=== PATIENT | female | born 1935 | race Caucasian/White ===

== ENCOUNTER 2018-11-10 17:17 | Inpatient (IN) | payer MEDICARE ==
[~2018-11-10] VITALS: Ht 160 cm; Wt 62.4 kg
[2018-11-10 18:35] LABS: BASOPHILS % 0.3 % (0.0-1.0); EOSINOPHILS % 0.3 % (0.0-6.0); HEMATOCRIT 34.2 % (34.2-44.1); HEMOGLOBIN 11.4 g/dL (12.0-16.0); LYMPHOCYTES # (AUTO) 1.8 (1.0-3.2); LYMPHOCYTES % 16.2 % (18.0-39.1); MEAN CORPUSCULAR HGB CONC 33.3 g/dL (31-35); MONOCYTES # (AUTO) 0.9 (0.2-0.8); MONOCYTES % 7.8 % (4.4-11.3); NEUTROPHILS # (AUTO) 8.5 (2.1-6.9); NEUTROPHILS % 75.1 % (38.7-80.0); PLATELET COUNT 217 x10e3/uL (140-360); RED CELL DISTRIBUTION WIDTH 12.8 % (11.7-14.4)
[2018-11-10 18:54] LABS: ALBUMIN/GLOBULIN RATIO 0.8 (0.8-2.0); ANION GAP 15.3 mmol/L (8-16); CALCIUM 9.4 mg/dL (8.4-10.2); CREATININE, SERUM 1.4 mg/dL (0.57-1.11); POTASSIUM 3.3 mmol/L (3.5-5.1)
--- NOTE | 2018-11-10 19:05 | Diagnostic Imaging Report ---
EXAMINATION: CHEST SINGLE (PORTABLE) INDICATION: ^SOB COMPARISON: None FINDINGS: AP view TUBES and LINES: None. LUNGS: Lungs are well inflated. Lungs are clear. There is no evidence of pneumonia or pulmonary edema. PLEURA: No pleural effusion or pneumothorax. HEART AND MEDIASTINUM: The cardiomediastinal silhouette is unremarkable. There are atherosclerotic calcifications within the aorta. BONES AND SOFT TISSUES: No acute osseous lesion. Soft tissues are unremarkable. Bilateral breast implants. Right breast and right axillary surgical clips. UPPER ABDOMEN: No free air under the diaphragm. IMPRESSION: No acute thoracic abnormality. Signed by: Dr. Gerardo Geronimo M.D. on 11/10/2018 7:01 PM
[2018-11-10 19:14] LABS: CREATINE KINASE MB 1.4 ng/mL (0-5.0); THYROID STIMULATING HORMONE 1.023 uIU/mL (0.350-4.940)
[2018-11-10 19:31] LABS: BILIRUBIN,URINE SMALL (NEGATIVE); CLARITY,URINE CLEAR (CLEAR); COLOR,URINE ORANGE (YELLOW); KETONES,URINE TRACE (NEGATIVE); LEUKOCYTE ESTERASE ,URINE TRACE (NEGATIVE); NITRITE,URINE POSITIVE (NEGATIVE); PROTEIN,URINE DIPSTICK 2+ (NEGATIVE); URINE UROBILINOGEN 4 mg/dL (0.2 - 1)
[2018-11-10 19:44] LABS: BACTERIA,URINE MANY /HPF; WBC,URINE (MAN) 0-5 /HPF (0-5)
[2018-11-10] MEDS ORDERED: HALOPERIDO100 MG/11 IM (20:13)
[2018-11-10] MEDS ORDERED: ATENOLOL100 MG PO (20:13)
[2018-11-10] MEDS ORDERED: PAROXETINE HCL40 MG PO (20:13)
[2018-11-10] MEDS ORDERED: TRIAMTERENE-HCTZ1 EA PO (20:13)
[2018-11-10] MEDS ORDERED: PANTOPRAZOLE SO40 MG PO (20:13)
[2018-11-10] MEDS ORDERED: DONEPEZIL HCL10 MG PO (20:13)
[2018-11-10] MEDS ORDERED: OXYBUTYNIN CHLOR5 MG PO (20:13)
[2018-11-10] MEDS ORDERED: NIFEDIPINE ER90 MG PO (20:13)
[2018-11-10] MEDS ORDERED: VITAMIN D250000 UNIT PO (20:13)
[2018-11-10] MEDS ORDERED: LISINOPRIL40 MG PO (20:13)
[2018-11-10] MEDS ORDERED: NAPROXEN500 MG PO (20:13)
[2018-11-10] MEDS ORDERED: MIRTAZAPINE30 MG PO (20:13)
[2018-11-10] MEDS ORDERED: ATORVASTATIN CA40 MG PO (20:13)
[2018-11-10] MEDS ORDERED: QUETIAPINE FUMA50 MG PO (20:13)
--- NOTE | 2018-11-10 20:50 | Diagnostic Imaging Report ---
Examination: CT head without contrast Clinical Indication: Altered mental status. Technique: Transaxial noncontrast images from the skull base through the vertex were obtained. Sagittal and coronal reformatted images were done. Dose modulation, iterative reconstruction, and/or weight based adjustment of the mA/kV was utilized to reduce the radiation dose to as low as reasonably achievable. Comparison: None. Findings: Scalp: No abnormalities. Bones: Intact. No fractures. No blastic or lytic lesions. Brain sulci: Appropriate for patient's age. Ventricles: Normal in size and configuration. No hydrocephalus. . Extra-axial space: No abnormalities. Parenchyma: There are patchy areas of low-attenuation within subcortical and periventricular white matter, nonspecific, but could represent microvascular ischemic disease. A chronic left striatocapsular lacunar infarct. No masses, hemorrhage, or acute or chronic cortical based vascular insults. Suprasellar region: No abnormalities. Craniocervical junction: The foramen magnum is patent. No Chiari one malformation. Incidental findings: Atherosclerotic calcification of the cavernous and supraclinoid internal carotid and V4 segments of the bilateral vertebral arteries. Impression: 1. No acute intracranial finding. 2. Moderate chronic microvascular ischemic change. Chronic left striatocapsular lacunar infarct. Signed by: Dr. Ayla Noe M.D. on 11/10/2018 8:46 PM
[2018-11-10] MEDS ORDERED: HALOPERIDOL DECANOATE 100 MG IM SCH (21:00)
[2018-11-10] MEDS ORDERED: KCL 20MEQ/.9 SOD CHL 1,000 ML IV ONE ×2 (21:00→21:13)
[2018-11-10] MEDS ORDERED: ONDANSETRON HCL INJ 2MG/ML 2ML 2 MG/ML VIAL IV PRN (21:00)
--- OUTSIDE RECORDS SUMMARY | 2018-11-10 21:07 | XMS REPORT ---
Author Author [facility] Address Unknown Phone Unavailable Care Team Providers Care Implant Polisher Name Role Phone Kelly LAWSON Unavailable Unavailable Problems This patient has no known problems. Allergies, Adverse Reactions, Alerts This patient has no known allergies or adverse reactions. Medications This patient has no known medications. Results Test Description Test Time Test Comments Text Results Atomic Results Result Comments CT BRAIN WO 2018-11-10 20:43:00 [place] [address] Patient Name: TRACY MICHELLE MR #: [id number] : 1935 Age/Sex: 83/F Req #: [id number] Adm Physician: Ordered by: DENISE WILSON MD Report #: [id number] Location: ER Room/Bed: Procedure: [id number] CT/CT BRAIN WO Exam Date: Exam Time: REPORT STATUS: Signed Examination: CT head without contrast Clinical Indication: Altered mental status. Technique: Transaxial noncontrast images from the skull base through the vertex were obtained. Sagittal and coronal reformatted images were done. Dose modulation, iterative reconstruction, and/or weight based adjustment of the mA/kV was utilized to reduce the radiation dose to as low as reasonably achievable. Comparison: None. Findings: Scalp: No abnormalities. Bones: Intact. No fractures. No blastic or lytic lesions. Brain sulci: Appropriate for patient's age. Ventricles: Normal in size and configuration. No hydrocephalus. . Extra-axial space: No abnormalities. Parenchyma: There are patchy areas of low-attenuation within subcortical and periventricular white matter, nonspecific, but could represent microvascular ischemic disease. A chronic left striatocapsular lacunar infarct. No masses, hemorrhage, or acute or chronic cortical based vascular insults. Suprasellar region: No abnormalities. Craniocervical junction: The foramen magnum is patent. No Chiari one malformation. Incidental findings: Atherosclerotic calcification of the cavernous and supraclinoid internal carotid and V4 segments of the bilateral vertebral arteries. Impression: 1. No acute intracranial finding. 2. Moderate chronic microvascular ischemic change. Chronic left striatocapsular lacunar infarct. Signed by: Dr. Ayla Noe M.D. on 11/10/2018 8:46 PM Dictated By: AYLA WATTS MD 45 Transcribed By: ELTON on 11/10/182045 COPY TO: DENISE WILSON MD CHEST SINGLE (PORTABLE) 2018-11-10 19:01:00 [place] [address] Patient Name: TRACY MICHELLE MR #: [id number] : 1935 Age/Sex: 83/F Req #: [id number] Adm Physician: Ordered by: MORGAN LAWSON MD Report #: [id number] Location: ER Room/Bed: Procedure: [id number] DX/CHEST SINGLE (PORTABLE) Exam Date: 11/10/18 Exam Time: 1842 REPORT STATUS: Signed EXAMINATION: CHEST SINGLE (PORTABLE) IN DICATION: SOB COMPARISON: None FINDINGS: AP view TUBES and LINES: None. LUNGS: Lungs are well inflated. Lungs are clear. There is no evidence of pneumonia or pulmonary edema. PLEURA: No pleural effusion or pneumothorax. HEART AND MEDIASTINUM: The cardiomediastinal silhouette is unremarkable. There are atherosclerotic calcifications within the aorta. BONES AND SOFT TISSUES: No acute osseous lesion. Soft tissues are unremarkable. Bilateral breast implants. Right breast and right axillary surgical clips. UPPER ABDOMEN: No free air under the diaphragm. IMPRESSION: No acute thoracic abnormality. Signed by: Dr. Farzaneh Roper M.D. on 11/10/2018 7:01 PM Dictated By: FARZANEH ROPER MD 00 Transcribed By: ELTON on 11/10/181900 COPY TO: MORGAN LAWSON MD
[2018-11-10] MEDS ORDERED: ATORVASTATIN 40 MG TAB ONE (21:11)
[2018-11-10] MEDS ORDERED: DONEPEZIL HCL 5 MG TAB ONE (21:12)
[2018-11-10] MEDS ORDERED: MIRTAZAPINE 15 MG TAB ONE (21:12)
[2018-11-10] MEDS ORDERED: QUETIAPINE FUMARATE 25 MG TAB ONE (21:13)
[2018-11-10] MEDS: MIRTAZAPINE 15 MG TAB PO SCH (21:14)
[2018-11-10] MEDS: QUETIAPINE FUMARATE 25 MG TAB PO SCH (21:14)
[2018-11-10] MEDS: DONEPEZIL HCL 5 MG TAB PO SCH (21:14)
--- NOTE | 2018-11-10 22:07 | NUR ---
PATIENT RECEIVED FROM EMERGENCY DEPARTMENT PER STRETCHER AT 0. SHE'S ALERT AND ORIENTED TO SELF ONLY. CONFUSION NOTED WHILE SPEAKING WITH THE PATIENT. REDNESS WITH DISCOLORATION TO THE SACRUM, MULTIPLE SKIN MOLES TO THE BACK. PATIENT DENIES PAIN, BED ALARM ON AND CALL LIGHT WITHIN EASY REACH.
[2018-11-10 22:15] VITALS: BP 189/75
[2018-11-10 23:22] VITALS: BP 148/66
[2018-11-11] VITALS (7 sets, daily range): BP systolic 118–175; BP diastolic 57–76
--- NOTE | 2018-11-11 02:15 | NUR ---
PATIENT WAS ASSISTED TO THE RESTROOM BY THE TECH, NO RESPIRATORY DISTRESS OBSERVED. SHE'S NOW BACK IN BED WITH BED ALARM ON AND CALL LIGHT WITHIN EASY REACH.
[2018-11-11 05:45] LABS: BASOPHILS % 0.2 % (0.0-1.0); EOSINOPHILS # (AUTO) 0.1 (0.0-0.4); LYMPHOCYTES % 21.4 % (18.0-39.1); MEAN CORPUSCULAR HEMOGLOBIN 29.4 pg (28-32); MEAN CORPUSCULAR HGB CONC 32.3 g/dL (31-35); MEAN CORPUSCULAR VOLUME 91.2 fL (81-99); MONOCYTES # (AUTO) 0.9 (0.2-0.8); MONOCYTES % 10.1 % (4.4-11.3); NEUTROPHILS # (AUTO) 6.1 (2.1-6.9); NEUTROPHILS % 66.8 % (38.7-80.0); PLATELET COUNT 185 x10e3/uL (140-360); RED CELL DISTRIBUTION WIDTH 12.7 % (11.7-14.4)
[2018-11-11 06:05] LABS: ALBUMIN 2.5 g/dL (3.5-5.0); ALBUMIN/GLOBULIN RATIO 0.8 (0.8-2.0); ANION GAP 11.1 mmol/L (8-16); CALCIUM 8.8 mg/dL (8.4-10.2); CREATININE, SERUM 1.06 mg/dL (0.57-1.11); POTASSIUM 3.1 mmol/L (3.5-5.1)
--- NOTE | 2018-11-11 07:00 | NUR ---
BEDSIDE SHIFT REPORT RECEIVED FROM ROLAN RN. PT DENIES NEEDS AT THIS TIME.
[2018-11-11] MEDS ORDERED: NAPROXEN 250 MG TAB PO SCH (08:00)
[2018-11-11] MEDS: PAROXETINE HCL 20 MG TAB PO SCH (08:18)
[2018-11-11] MEDS: NIFEDIPINE CR 30 MG TAB PO SCH (08:18)
[2018-11-11] MEDS: ATENOLOL 100 MG TAB PO SCH ×2 (08:19→17:00)
[2018-11-11] MEDS: PANTOPRAZOLE SOD 40 MG TABEC PO SCH (08:19)
[2018-11-11] MEDS ORDERED: LISINOPRIL 20 MG TAB PO SCH (09:00)
[2018-11-11] MEDS ORDERED: NON-FORMULARY MEDICATION (Naproxen 500 MG) PO SCH (09:00)
[2018-11-11] MEDS ORDERED: OXYBUTYNIN CHLORIDE 5 MG TAB PO SCH (09:00)
[2018-11-11] MEDS: CEFTRIAXONE SOD 1 GM/NS 50 ML 50 ML IV SCH (09:06)
[2018-11-11] MEDS: SOD CHL 0.45%/POT CHL 20MEQ 1,000 ML IV SCH ×2 (09:06→18:25)
[2018-11-11 09:29] LABS: THYROID STIMULATING HORMONE 1.409 uIU/mL (0.350-4.940)
[2018-11-11 09:42] LABS: FOLATE 14.3 ng/mL (7.0-15.4)
--- NOTE | 2018-11-11 10:42 | History and Physical ---
PRIMARY CARE PHYSICIAN: Sravan Lakhani MD. CHIEF COMPLAINT: Not eating, confusion, progressive weight loss. HISTORY: The patient is an 83-year-old female, confused, baseline dementia, was brought into the hospital for decreased responsiveness. The patient is otherwise stable. She is confused now. Not much history could be obtained at this time. The patient is otherwise stable, however. Urinalysis showed she does have urinary tract infection. The patient is pending for further evaluation. PAST MEDICAL HISTORY: Dementia, overactive urinary bladder, hypertension, osteoarthritis, dementia with behavior disturbances, anxiety disorder, progressive weight loss, possible adult failure to thrive. PAST SURGICAL HISTORY: Bilateral mastectomy with reconstruction surgery, hysterectomy. SOCIAL HISTORY: Not available. REVIEW OF SYSTEMS: The patient is not in distress. She denies any chest pain or shortness of breath. No abdominal pain. PHYSICAL EXAMINATION: VITAL SIGNS: Temperature is 97, blood pressure 174/73, pulse rate 68, respirations 20. GENERAL: The patient is in no acute distress. She is awake. HEENT: Normocephalic, atraumatic. Anicteric. NECK: Supple grossly. PULMONARY: Diminished breath sounds bilaterally. CARDIOVASCULAR: S1, S2. Regular rate and rhythm. ABDOMEN: Soft, non-distention. EXTREMITIES: No gross cyanosis or edema. NEUROLOGIC: No gross focal deficit, although the patient is confused. LABORATORY DATA: Sodium is 139, potassium 3.1, chloride 104, bicarb 27, BUN 23, creatinine 1.4, glucose is 110. Brain CT showed chronic ischemic disease. Chest x-ray is otherwise unremarkable. Urinalysis showed positive leukocyte esterase and many bacteria. No wbc's. IMPRESSION: 1. Altered mental status. This could be worsening dementia versus urinary tract infection. 2. Urinary tract infection. 3. Baseline multiple chronic problems and possible progressive weight loss due to dementia. PLAN: IV fluid rehydration, correct electrolyte. We will obtain CT chest, abdomen and pelvis for any other etiology, which may have caused the patient to have progressive weight loss and not eating with possible progressive adult failure to thrive. Continue with Rocephin 1 g daily. Electrolyte correction. IV fluid. We will monitor the patient closely. Robert Ford MD JKelly/MODL /[id number]
[2018-11-11] MEDS ORDERED: ONDANSETRON HCL 4 MG ORAL DISINTEGRATING TAB PO PRN (11:45)
--- NOTE | 2018-11-11 13:15 | Diagnostic Imaging Report ---
TECHNIQUE: CT of the chest, abdomen and pelvis without intravenous contrast. INDICATION: Altered mental status, failure to thrive. Baseline dementia. COMPARISON: None. TECHNIQUE: Chest, Abdomen and pelvis were scanned utilizing a multidetector helical scanner from the thoracic inlet to the pubic symphysis without administration of IV or oral contrast. Coronal and sagittal reformations were obtained. Routine protocol was performed. Lack of intravenous contrast limits sensitivity for evaluation of vascular or visceral structures. COMPLICATIONS: None RADIATION DOSE: Total DLP: 655 mGy*cm Dose modulation, iterative reconstruction, and/or weight based adjustment of the mA/kV was utilized to reduce the radiation dose to as low as reasonably achievable. FINDINGS: LINES AND TUBES: None LUNGS AND AIRWAYS: The central airways are patent. Minimal biapical pleural-parenchymal opacity, suggestive of prior granulomatous disease. Scattered pulmonary nodules, for example a 3 mm solid nodule in the right upper lobe on series 3, image 21 and a 2 mm calcified granuloma in the right upper lobe on image 29. There is a 3 mm groundglass nodule in the right lower lobe on image 35, likely infectious or inflammatory. Minimal dependent subsegmental atelectasis in the bilateral lower lobes. PLEURA: The pleural spaces are clear. HEART AND MEDIASTINUM: There is a 1.1 cm hypodense left thyroid lobe nodule. No significant mediastinal, hilar or axillary lymphadenopathy is seen. No cardiomegaly or pericardial effusion. Moderate atherosclerotic calcifications of the thoracic aorta and branch vessels. Scattered coronary atherosclerosis. Small hiatal hernia. HEPATOBILIARY: No focal hepatic lesions. No biliary ductal dilatation. SPLEEN: No splenomegaly. PANCREAS: No focal masses or ductal dilatation. ADRENALS: No adrenal nodules. KIDNEYS/URETERS: No hydronephrosis. There is a 2 cm soft tissue lesion the left upper pole kidney (series 2, image 50; 25 HU). Additional subcentimeter hypodense exophytic lesion in the left upper pole, likely a cyst. There is a 2 mm punctate nonobstructive stone in the left mid pole kidney. The right kidney is unremarkable. PELVIC ORGANS/BLADDER: Status post hysterectomy. PERITONEUM / RETROPERITONEUM: No free air. Trace free fluid in the pelvis. LYMPH NODES: No lymphadenopathy. VESSELS: There are moderate atherosclerotic calcifications in the aorta and branch vessels. GI TRACT: No distention or wall thickening. The appendix is not clearly identified, however there are no secondary signs of appendicitis in the right lower quadrant. BONES AND SOFT TISSUES: Bilateral breast implants. Right breast and axillary surgical clips. Extensive degenerative disc changes at L1-L2, L2-L3, and L3-L4 with prominent endplate sclerotic changes and Schmorl's nodes. IMPRESSION: No acute CT findings in the chest, abdomen, or pelvis. A 2 cm soft tissue lesion in the left upper pole kidney is suspicious for neoplasm. Renal protocol CT or MRI is suggested for further evaluation. If contrast cannot be administered due to renal dysfunction, then renal ultrasound may be performed. A 1.1 cm left thyroid lobe nodule. Thyroid ultrasound may be considered for further evaluation. Signed by: Dr. Tremaine Mullins MD on 11/11/2018 1:11 PM
[2018-11-11] MEDS: ATORVASTATIN 40 MG TAB PO SCH (21:20)
[2018-11-11] MEDS: DONEPEZIL HCL 5 MG TAB PO SCH (21:20)
[2018-11-11] MEDS: MIRTAZAPINE 15 MG TAB PO SCH (21:21)
[2018-11-11] MEDS: QUETIAPINE FUMARATE 25 MG TAB PO SCH (21:21)
[2018-11-12] VITALS (8 sets, daily range): BP systolic 112–146; BP diastolic 54–74
[2018-11-12] MEDS: SOD CHL 0.45%/POT CHL 20MEQ 1,000 ML IV SCH (02:04)
[2018-11-12] MEDS: KCL 20MEQ/.9 SOD CHL 1,000 ML IV SCH ×2 (06:00→09:39)
[2018-11-12 06:18] LABS: ANION GAP 9.1 mmol/L (8-16); CREATININE, SERUM 1.03 mg/dL (0.57-1.11); PHOSPHORUS 2.8 MG/DL (2.3-4.7); POTASSIUM 3.1 mmol/L (3.5-5.1)
[2018-11-12 06:33] LABS: MAGNESIUM 1.1 MG/DL (1.3-2.1)
[2018-11-12] MEDS: CEFTRIAXONE SOD 1 GM/NS 50 ML 50 ML IV SCH (08:14)
[2018-11-12] MEDS: PAROXETINE HCL 20 MG TAB PO SCH (08:14)
[2018-11-12] MEDS: ATENOLOL 100 MG TAB PO SCH ×2 (08:15→17:00)
[2018-11-12] MEDS: NIFEDIPINE CR 30 MG TAB PO SCH (08:15)
[2018-11-12] MEDS: PANTOPRAZOLE SOD 40 MG TABEC PO SCH (08:15)
[2018-11-12] MEDS: POTASSIUM CHLORIDE 10MEQ EA PO SCH ×3 (09:11→17:42)
[2018-11-12] MEDS: MAGNESIUM SULFATE 2GM/50ML 50 ML IV SCH ×2 (09:39→12:20)
--- NOTE | 2018-11-12 11:17 | NUR ---
Pt in room resting at this time. Resp WNL, pt is alert and oriented to name only, unable to state and place/time. IV patent, no redness or swelling to insertion site. IV fluids administered at this time. Pt's skin presented flaky and dry, showered provided today. O2 sat above 96% on RA. No c/o pain per patient. Call light within reach, bed in lowest position.
--- NOTE | 2018-11-12 11:46 | NUR ---
Pt ambulating with PT at this time, unsteady gait observed. Pt tolerated ambulating from room to nurse's station and back. No SOB/ or dizziness noted.
--- NOTE | 2018-11-12 11:47 | NUR ---
IV to R FA, increased swelling and redness to insertion site. Infiltration noted. IV removed at this time.
--- NOTE | 2018-11-12 12:33 | NUR ---
New IV inserted to R hand. Fluids continued.
--- NOTE | 2018-11-12 13:00 | NUR ---
received pt at this time from OBS. Pt is aox2-3 and able to verbalize needs. Pt continues on IVF [id number]@ 75. Pt denies any pain at this time. Denies SOB. Pt is also running IV magnesium to replace hypomagnesia from this am.
--- NOTE | 2018-11-12 18:30 | NUR ---
Pt in bed with eyes closed easily arouses with verbal stimuli. Pt continues on IVF 75ml/hr and well tolerated. Pt is confused. Bed alarm is in place.
--- NOTE | 2018-11-12 19:15 | NUR ---
Bedside rounds completed with morning nurse. Pt alert to name. Lying in bed HOB 45 degrees. Denies pain at this time, no s/s of pain noted. Call hooper within reach. Bed alarm on. Will continue to monitor.
[2018-11-12] MEDS: MIRTAZAPINE 15 MG TAB PO SCH (20:34)
[2018-11-12] MEDS: DONEPEZIL HCL 5 MG TAB PO SCH (20:34)
[2018-11-12] MEDS: ATORVASTATIN 40 MG TAB PO SCH (20:34)
[2018-11-12] MEDS: QUETIAPINE FUMARATE 25 MG TAB PO SCH (20:34)
[2018-11-13] VITALS (8 sets, daily range): BP systolic 134–156; BP diastolic 60–67
[2018-11-13 06:02] LABS: BASOPHILS # (AUTO) 0.1 (0.0-0.1); BASOPHILS % 0.5 % (0.0-1.0); EOSINOPHILS # (AUTO) 0.3 (0.0-0.4); EOSINOPHILS % 3.1 % (0.0-6.0); HEMATOCRIT 32.8 % (34.2-44.1); HEMOGLOBIN 10.6 g/dL (12.0-16.0); LYMPHOCYTES # (AUTO) 1.7 (1.0-3.2); LYMPHOCYTES % 16.5 % (18.0-39.1); MEAN CORPUSCULAR HGB CONC 32.3 g/dL (31-35); MEAN CORPUSCULAR VOLUME 92.9 fL (81-99); MONOCYTES # (AUTO) 0.8 (0.2-0.8); MONOCYTES % 7.4 % (4.4-11.3); NEUTROPHILS # (AUTO) 7.4 (2.1-6.9); PLATELET COUNT 211 x10e3/uL (140-360); RED BLOOD COUNT 3.53 x10e6/uL (3.6-5.1); RED CELL DISTRIBUTION WIDTH 13.2 % (11.7-14.4)
[2018-11-13 06:33] LABS: ANION GAP 9.8 mmol/L (8-16); BLOOD UREA NITROGEN 13 mg/dL (7-26); BUN/CREATININE RATIO 15 (6-25); CALCIUM 8.4 mg/dL (8.4-10.2); CARBON DIOXIDE 25 mmol/L (22-29); CHLORIDE 108 mmol/L (98-107); CREATININE, SERUM 0.87 mg/dL (0.57-1.11); EST GLOMERULAR FILTRATION RATE > 60 ML/MIN (60-); GLUCOSE 94 mg/dL (74-118); POTASSIUM 3.8 mmol/L (3.5-5.1); SODIUM 139 mmol/L (136-145)
--- NOTE | 2018-11-13 06:43 | NUR ---
Pt resting quietly with eyes closed. Resp even and unlabored. HOB 60 degrees. No acute distress noted. Call hooper within reach. Will continue to monitor.
[2018-11-13 06:49] LABS: MAGNESIUM 1.9 MG/DL (1.3-2.1); PHOSPHORUS 2.3 MG/DL (2.3-4.7)
--- NOTE | 2018-11-13 07:41 | NUR ---
Pt received in bed at this time. Pt is asleep with breaths even and unlabored. 0 s/s of acute distress noted. Continues on IVF and well tolerated. IV is patent to right hand.
[2018-11-13] MEDS: CEFTRIAXONE SOD 1 GM/NS 50 ML 50 ML IV SCH (09:10)
[2018-11-13] MEDS: PAROXETINE HCL 20 MG TAB PO SCH (09:11)
[2018-11-13] MEDS: NIFEDIPINE CR 30 MG TAB PO SCH (09:13)
[2018-11-13] MEDS: PANTOPRAZOLE SOD 40 MG TABEC PO SCH (09:13)
[2018-11-13] MEDS: ATENOLOL 100 MG TAB PO SCH ×2 (09:14→16:41)
--- NOTE | 2018-11-13 17:54 | NUR ---
Pt in bed at this time. Pt denies any pain at this time. Pt had agreed to take shower after supper but when PCT went to help her in shower pt refused.
--- NOTE | 2018-11-13 19:15 | NUR ---
Rounds completed with morning nurse. Pt alert to name. Lying in bed HOB 30 degrees. Denies pain at this time, no s/s of pain noted. Call hooper within reach. Bed alarm on. Will continue to monitor.
[2018-11-13] MEDS: KCL 20MEQ/.9 SOD CHL 1,000 ML IV SCH (20:57)
[2018-11-13] MEDS: MIRTAZAPINE 15 MG TAB PO SCH (20:57)
[2018-11-13] MEDS: QUETIAPINE FUMARATE 25 MG TAB PO SCH (20:57)
[2018-11-13] MEDS: ATORVASTATIN 40 MG TAB PO SCH (20:57)
[2018-11-13] MEDS: DONEPEZIL HCL 5 MG TAB PO SCH (20:57)
[2018-11-14] VITALS (9 sets, daily range): BP systolic 144–194; BP diastolic 66–89
--- NOTE | 2018-11-14 07:06 | NUR ---
RECEIVED PATIENT RESTING IN BED. NO ACUTE DISTRESS NOTED. NO S/S OF PAIN OR DISCOMFORT NOTED. CALL LIGHT WITHIN REACH. BED IN THE LOWEST POSITION. BED ALARM ON.
--- NOTE | 2018-11-14 07:25 | NUR ---
Report given to morning nurse. Pt lying in bed, HOB 45 degrees. No acute distress noted.
[2018-11-14] MEDS: PAROXETINE HCL 20 MG TAB PO SCH (09:18)
[2018-11-14] MEDS: CEFTRIAXONE SOD 1 GM/NS 50 ML 50 ML IV SCH (09:18)
[2018-11-14] MEDS: KCL 20MEQ/.9 SOD CHL 1,000 ML IV SCH (09:18)
[2018-11-14] MEDS: NIFEDIPINE CR 30 MG TAB PO SCH (09:19)
[2018-11-14] MEDS: ATENOLOL 100 MG TAB PO SCH ×2 (09:19→17:00)
[2018-11-14] MEDS: PANTOPRAZOLE SOD 40 MG TABEC PO SCH (09:19)
--- NOTE | 2018-11-14 15:56 | NUR ---
Nutrition Intervention Note RD Recommendation(s) for Physician: -Continue current diet as ordered -Rec Ensure Compact TID to increase protein-calorie intake Plan of Care: RD following, monitoring for tolerance and adequacy, ONS rec Nutrition reason for involvement: RN Consult Failure to thrive RD Assessment 11/14: 83yo F, who was admitted for decreased responsiveness. Visited pt in the room. Pt reported appetite comes and goes for last couple weeks. PCT recorded 25 100% meal intake since admission. No complains of nausea or vomiting. Pt reported hard to swallow foods sometimes but no aspiration reported. Pt denied any chewing difficulty. Unknown weight hx as pt seemed to be somewhat confused. No physical signs of muscle and fat loss upon NFPA. RD offered Ensure to increase protein-calorie intake and pt was agreeable with plan. No family presented on bedside. Will continue to monitor and follow. Principal Problems/Diagnoses: AMS, UTI, failure to thrive PMH: Dementia, overactive urinary bladder, hypertension, osteoarthritis, dementia with behavior disturbances, anxiety disorder, progressive weight loss, possible adult failure to thrive. GI: abdomen soft, non-tender, flatus present Skin: intact Labs: (11/14) reviewed Meds: protonix, KCl Ht: 63in Wt: 173lb BMI: 30.6kg/m2 IBW: 115lb Malnutrition Evaluation (11/14/2018) The patient does not meet criteria for a specified degree of malnutrition at this time. Will re-evaluate at follow-up as appropriate. Energy intake: <75% of estimated energy requirements for >1 month Weight loss: Pt stated UBW at 125lbs then said I dont remember. Fat loss: None Muscle loss: None Nutrition Prescription (Diet Order): cardiac diet Estimated Nutritional Needs: Calories: 1425 1710kcal(25-30kcal/kg/d) Weight used: IBW Protein: 57 86g(1-1.5g/kg/d) Weight used: IBW Diet Adequacy: Not meeting calorie needs, Not meeting protein needs Diet Education Needs Assessment: Diet education indicated, but patient not appropriate for education at this time. Nutrition Care Level: low Nutrition Diagnosis: Inadequate oral intake related to chronic illness as evidenced by poor appetite and possible weight loss. Goal: Patient will meet 75-100% of estimated needs by follow up Progress: N/A Interventions: Modified diet, Commercial beverage Monitoring/Evaluation: Total energy intake, Total protein intake, Modified diet, Liquid supplement, Weight change Signed: Rochelle Barajas, MS, RD, LD
[2018-11-14] MEDS ORDERED: CHLORASEPTIC SPRAY 177 ML BTL MM PRN (16:00)
[2018-11-14] MEDS: NYSTATIN SUSPENSION 5 ML UDC PO SCH ×2 (16:35→21:00)
--- NOTE | 2018-11-14 16:44 | NUR ---
ORDERS FOR HOSPICE CONSULT PLAN DC HOME SATURDAY CHOICE LETTER SIGNED FOR [facility] COPY OF CHOICE LETTER TO PT NOTIFIED BIN WITH [facility] WILL CALL FAMILY AND SCHEDULE APPT
--- NOTE | 2018-11-14 19:23 | NUR ---
REPORT GIVEN TO ONCOMING NURSE, WALKING ROUNDS DONE. PATIENT IS RESTING IN BED. NO ACUTE DISTRESS NOTED. NO S/S OF PAIN NOTED. CALL LIGHT WITHIN REACH.
[2018-11-14] MEDS: ATORVASTATIN 40 MG TAB PO SCH (21:00)
[2018-11-14] MEDS: MIRTAZAPINE 15 MG TAB PO SCH (21:00)
[2018-11-14] MEDS: QUETIAPINE FUMARATE 25 MG TAB PO SCH (21:00)
[2018-11-14] MEDS: DONEPEZIL HCL 5 MG TAB PO SCH (21:00)
[2018-11-15] VITALS (7 sets, daily range): BP systolic 140–180; BP diastolic 63–78
[2018-11-15] MEDS: KCL 20MEQ/.9 SOD CHL 1,000 ML IV SCH ×3 (00:30→21:05)
[2018-11-15] MEDS: HYDRALAZINE HCL 20 MG/ML VIAL IV PRN (05:31)
[2018-11-15] MEDS: NYSTATIN SUSPENSION 5 ML UDC PO SCH ×3 (05:31→21:05)
--- NOTE | 2018-11-15 05:32 | NUR ---
AFTER ASSESSING VITALS PATIENT HAD A BLOOD PRESSURE OF 175/72. AFTER RETAKING THE BLOOD PRESSURE IT READ 186/78, GAVE THE PATIENT HYDRALAZINE TO LOWER THE BLOOD PRESSURE. WILL RECHECK AND CONTINUE TO MONITOR.
[2018-11-15 06:47] LABS: MAGNESIUM 1.3 MG/DL (1.3-2.1); PHOSPHORUS 1.8 MG/DL (2.3-4.7)
--- NOTE | 2018-11-15 06:56 | NUR ---
RECEIVED PATIENT RESTING IN BED. NO ACUTE DISTRESS NOTED. NO S/S OF PAIN NOTED. CALL LIGHT WITHIN REACH. BED IN THE LOWEST POSITION. BED ALARM ON.
[2018-11-15 07:02] LABS: ANION GAP 11.4 mmol/L (8-16); BLOOD UREA NITROGEN 8 mg/dL (7-26); BUN/CREATININE RATIO 10 (6-25); CALCIUM 8.3 mg/dL (8.4-10.2); CARBON DIOXIDE 25 mmol/L (22-29); CHLORIDE 110 mmol/L (98-107); CREATININE, SERUM 0.77 mg/dL (0.57-1.11); EST GLOMERULAR FILTRATION RATE > 60 ML/MIN (60-); GLUCOSE 102 mg/dL (74-118); POTASSIUM 3.4 mmol/L (3.5-5.1); SODIUM 143 mmol/L (136-145)
[2018-11-15] MEDS: PAROXETINE HCL 20 MG TAB PO SCH (08:19)
[2018-11-15] MEDS: CEFTRIAXONE SOD 1 GM/NS 50 ML 50 ML IV SCH (08:19)
[2018-11-15] MEDS: PANTOPRAZOLE SOD 40 MG TABEC PO SCH (08:20)
[2018-11-15] MEDS: ATENOLOL 100 MG TAB PO SCH ×2 (08:20→16:12)
[2018-11-15] MEDS: NIFEDIPINE CR 30 MG TAB PO SCH (08:20)
[2018-11-15] MEDS ORDERED: MAGNESIUM SULFATE 2GM/50ML 50 ML IV ONE (10:00)
[2018-11-15] MEDS ORDERED: POTASSIUM CHLORIDE 10MEQ EA PO NR (10:00)
[2018-11-15] MEDS: MAGNESIUM OXIDE 400 MG TAB PO SCH ×2 (10:15→16:12)
[2018-11-15] MEDS ORDERED: POTASSIUM PHOSPHATE 20 MM in SODIUM CHLORIDE 0.9% 250ML 250 ML IV ONE (10:30)
--- NOTE | 2018-11-15 18:56 | NUR ---
REPORT GIVEN TO ONCOMING NURSE, PATIENT IS RESTING IN BED. NO ACUTE DISTRESS NOTED. NO S/S OF PAIN NOTED. CALL LIGHT WITHIN REACH. BED IN THE LOWEST POSITION.
--- NOTE | 2018-11-15 19:00 | NUR ---
patient received awake, alert, lying quietly in bed. no c/o pain noted. ivf continue to infuse without difficulty. pm assessment complete. side rails up x 3. call hooper within reach. patient instructed to call for assistance when needed.
[2018-11-15] MEDS: QUETIAPINE FUMARATE 25 MG TAB PO SCH (20:37)
[2018-11-15] MEDS: ATORVASTATIN 40 MG TAB PO SCH (20:37)
[2018-11-15] MEDS: MIRTAZAPINE 15 MG TAB PO SCH (20:37)
[2018-11-15] MEDS: DONEPEZIL HCL 5 MG TAB PO SCH (20:37)
[2018-11-16] VITALS (8 sets, daily range): BP systolic 135–179; BP diastolic 62–83
[2018-11-16] MEDS: NYSTATIN SUSPENSION 5 ML UDC PO SCH ×3 (05:53→22:00)
[2018-11-16 06:20] LABS: BASOPHILS # (AUTO) 0.1 (0.0-0.1); BASOPHILS % 0.7 % (0.0-1.0); EOSINOPHILS # (AUTO) 0.4 (0.0-0.4); EOSINOPHILS % 5.9 % (0.0-6.0); HEMATOCRIT 31.4 % (34.2-44.1); HEMOGLOBIN 9.7 g/dL (12.0-16.0); LYMPHOCYTES # (AUTO) 1.9 (1.0-3.2); LYMPHOCYTES % 24.9 % (18.0-39.1); MEAN CORPUSCULAR HEMOGLOBIN 29.5 pg (28-32); MEAN CORPUSCULAR HGB CONC 30.9 g/dL (31-35); MEAN CORPUSCULAR VOLUME 95.4 fL (81-99); MONOCYTES # (AUTO) 0.6 (0.2-0.8); MONOCYTES % 8.1 % (4.4-11.3); NEUTROPHILS # (AUTO) 4.5 (2.1-6.9); NEUTROPHILS % 60.1 % (38.7-80.0); PLATELET COUNT 216 x10e3/uL (140-360); RED BLOOD COUNT 3.29 x10e6/uL (3.6-5.1); RED CELL DISTRIBUTION WIDTH 13.4 % (11.7-14.4)
[2018-11-16 06:39] LABS: MAGNESIUM 1.5 MG/DL (1.3-2.1)
--- NOTE | 2018-11-16 06:51 | NUR ---
RECEIVED PATIENT RESTING IN BED. NO ACUTE DISTRESS NOTED. CALL LIGHT WITHIN REACH. BED IN THE LOWEST POSITION. BED ALARM ON.
[2018-11-16 06:57] LABS: ANION GAP 10.8 mmol/L (8-16); BLOOD UREA NITROGEN 9 mg/dL (7-26); BUN/CREATININE RATIO 13 (6-25); CARBON DIOXIDE 22 mmol/L (22-29); CHLORIDE 111 mmol/L (98-107); EST GLOMERULAR FILTRATION RATE > 60 ML/MIN (60-); GLUCOSE 92 mg/dL (74-118); POTASSIUM 3.8 mmol/L (3.5-5.1); SODIUM 140 mmol/L (136-145)
[2018-11-16] MEDS: MAGNESIUM OXIDE 400 MG TAB PO SCH ×2 (08:27→16:10)
[2018-11-16] MEDS: NIFEDIPINE CR 30 MG TAB PO SCH (08:27)
[2018-11-16] MEDS: CEFTRIAXONE SOD 1 GM/NS 50 ML 50 ML IV SCH (08:27)
[2018-11-16] MEDS: PAROXETINE HCL 20 MG TAB PO SCH (08:27)
[2018-11-16] MEDS: ATENOLOL 100 MG TAB PO SCH ×2 (08:28→16:11)
[2018-11-16] MEDS: PANTOPRAZOLE SOD 40 MG TABEC PO SCH (08:28)
[2018-11-16] MEDS ORDERED: MAGNESIUM SULFATE 2GM/50ML IV NR (10:00)
[2018-11-16] MEDS ORDERED: POTASSIUM PHOSPHATE 20 MM in SODIUM CHLORIDE 0.9% 250ML 250 ML IV ONE (10:30)
[2018-11-16] MEDS: HYDRALAZINE HCL 20 MG/ML VIAL IV PRN (12:22)
[2018-11-16] MEDS: KCL 20MEQ/.9 SOD CHL 1,000 ML IV SCH ×2 (16:10→19:10)
--- NOTE | 2018-11-16 19:19 | NUR ---
REPORT GIVEN TO ONCOMING NURSE, WALKING ROUNDS DONE. PATIENT IS RESTING IN BED. NO ACUTE DISTRESS NOTED. NO S/S OF PAIN OR DISCOMFORT NOTED. CALL LIGHT WITHIN REACH. BED IN THE LOWEST POSITION. BED ALARM ON.
[2018-11-16] MEDS: ATORVASTATIN 40 MG TAB PO SCH (20:00)
[2018-11-16] MEDS: MIRTAZAPINE 15 MG TAB PO SCH (20:00)
[2018-11-16] MEDS: DONEPEZIL HCL 5 MG TAB PO SCH (20:00)
[2018-11-16] MEDS: QUETIAPINE FUMARATE 25 MG TAB PO SCH (20:01)
--- NOTE | 2018-11-16 23:01 | NUR ---
Patient confused. Up ut of bed to bathroom several time. Bed alarm on for safety. Patient incourage to stay in bed. Patient verbalized understanding of teaching. Continue monitor.
--- NOTE | 2018-11-17 02:09 | NUR ---
Patient resting quitly with no c/o at this time. Continue monitor.
[2018-11-17 04:00] VITALS: BP 141/66
[2018-11-17] MEDS: NYSTATIN SUSPENSION 5 ML UDC PO SCH ×2 (05:38→14:00)
[2018-11-17] MEDS: KCL 20MEQ/.9 SOD CHL 1,000 ML IV SCH (05:39)
--- NOTE | 2018-11-17 06:00 | NUR ---
Patient up frequent out of bed to void. Bed alarm on and pt is asst to the bathroom to prevent fall.
[2018-11-17 07:48] VITALS: BP 153/71
[2018-11-17] MEDS: CEFTRIAXONE SOD 1 GM/NS 50 ML 50 ML IV SCH (08:48)
[2018-11-17] MEDS: MAGNESIUM OXIDE 400 MG TAB PO SCH (08:49)
[2018-11-17] MEDS: PAROXETINE HCL 20 MG TAB PO SCH (08:50)
[2018-11-17] MEDS: NIFEDIPINE CR 30 MG TAB PO SCH (08:51)
[2018-11-17] MEDS: PANTOPRAZOLE SOD 40 MG TABEC PO SCH (08:52)
[2018-11-17] MEDS: ATENOLOL 100 MG TAB PO SCH (08:52)
--- NOTE | 2018-11-17 09:00 | NUR ---
pt assisted up to side of bed no distress noted.denie pain.
[2018-11-17 09:03] VITALS: BP 153/71
--- NOTE | 2018-11-17 10:00 | NUR ---
darius parker here spoke with fAMILY
[2018-11-17 11:26] VITALS: BP 150/63
--- NOTE | 2018-11-17 14:30 | NUR ---
SPOKE WITH [facility] TO DISCHARGE PT HOME WITH HOSPICE.
[2018-11-17 15:30] VITALS: BP 182/82
--- NOTE | 2018-11-17 16:05 | NUR ---
PT DISCHARGED HOME WITH HOSPICE,DENIES PAIN,TRANSPORTED TO [facility] W/C
--- NOTE | 2018-11-18 05:11 | Discharge Summary ---
PRIMARY CARE PHYSICIAN: Sravan Lakhani MD. CHIEF COMPLAINT: Altered mental status, urinary tract infection, adult failure to thrive, progressive weight loss, electrolyte disorder. SUMMARY: This 83 years old female, who came in with progressive weight loss and also worsening of dementia. The patient has been more forgetful, more dependent on all care at home. Apparently, she is having bladder infection and was subsequently treated. She was on Rocephin 1 g q. 24 hours. The patient also received IV fluid rehydration. She remained in confusion at times some agitation. The patient is otherwise stable. She is comfortable now. The patient will require more assistance and care at home. Consultation with [facility], hospice for advanced dementia, Alzheimer's dementia, treatment at home. The patient will continue home medication. She will continue with Seroquel and Aricept along with blood pressure medication. Hospice will continue to monitor the patient for any adjustment of medication for comfort palliative care at home. The patient is otherwise stable. The patient discharged home today after arrangement was made. MD AMELIA Watson/YVETTEL /[id number]
== END 2018-11-17 16:00 | disposition hospice, home (50) | DRG 689 ==
LOC: ER 17:17 → ERHOLD 21:03 → IMCU 21:52 → OBSVTOIN 11-12 08:44 → MED/SURG3 11-12 13:03
PROVIDERS: ADMIT Internal Medicine; ATTEND Internal Medicine
DX: N39.0 Urinary tract infection, site not specified (principal); G92 Toxic encephalopathy; F05 Delirium due to known physiological condition; G30.9 Alzheimer's disease, unspecified; F02.80 Dementia in other diseases classified elsewhere, unspecified severity, without behavioral disturbance, psychotic disturbance, mood disturbance, and anxiety; E87.6 Hypokalemia; D64.9 Anemia, unspecified; Z66 Do not resuscitate; Z51.5 Encounter for palliative care; I10 Essential (primary) hypertension; R63.4 Abnormal weight loss; R62.7 Adult failure to thrive; M19.90 Unspecified osteoarthritis, unspecified site; R07.0 Pain in throat; M48.00 Spinal stenosis, site unspecified; N28.9 Disorder of kidney and ureter, unspecified
CPT/HCPCS: 36415; 70450; 71045; 71250; 74176; 80048; 80053; 81001; 82550; 82553; 82607; 82746; 83540; 83735; 84100; 84443; 84466; 84484; 85025; 87086; 87186; 93005; 96361; 97139; 99284; G0378; J0360; J0696; J3475; J7050